=== PATIENT | female | born 1995 | race Caucasian/White ===

== ENCOUNTER 2017-03-15 12:50 | Inpatient (IN) | payer BC ==
[2017-03-10 16:34] VITALS: BMI 21.4
--- NOTE | 2017-03-11 12:01 | HP ---
Admitting History and Physical - Primary Care Physician PCP: Mateo Pinedo - Admission Chief Complaint: High risk for breast cancer History of Present Illness: Patient is a 21 yo female who presents as a high risk for breast cancer patient sec to family hx and BRCA 2 positive status. Patient had a negative MRI on . Patient is now presenting for bilateral mastectomy with reconstruction. History Source: Patient Limitations to Obtaining History: No Limitations - Past Medical History ...LMP Comment: DEPO SHOT-NONE FOR 2YRS Psych: Yes: Anxiety ENT: Yes: Other - Smoking History Smoking history: Never smoked Have you smoked in the past 12 months: No - Alcohol/Substance Use Hx Alcohol Use: No Home Medications - Allergies Allergies/Adverse Reactions: Allergies Allergy/AdvReac Type Severity Reaction Status Date / Time adhesive tape Allergy "RASH" Verified 03/10/17 16:50 No Known Drug Allergies Allergy Verified 03/10/17 16:50 - Home Medications Home Medications: Ambulatory Orders Medroxyprogesterone Acetate [Depo-Provera] 150 mg IM ASDIR 02/16/17 Acetaminophen [Tylenol] 650 mg PO PRN PRN 03/10/17 Family Disease History - Family Disease History Family Disease History: Other: Father (BRCA positive) Other Family History: paternal aunt-breast cancer and BRCA positive. paternal uncle-breast cancer and BRCA positive. brother-BRCA pos. Maternal aunt-breast cancer BRCA negative. maternal GF-colorectal cancer. maternal GGM-colorectal cancer. maternal uncle-bladder cancer Review of Systems - Review of Systems Psychiatric: reports: Anxiety Physical Examination Breast(s): Yes: Other (Symmetrical A cup breasts without skin changes or nipple discharge noted. No suspicious masses or adenopathy noted bilaterally.) Problem List - Problems (1) Family history of breast cancer Code(s): Z80.3 - FAMILY HISTORY OF MALIGNANT NEOPLASM OF BREAST (2) BRCA gene mutation positive Code(s): Z15.01 - GENETIC SUSCEPTIBILITY TO MALIGNANT NEOPLASM OF BREAST Z15.02 - GENETIC SUSCEPTIBILITY TO MALIGNANT NEOPLASM OF OVARY Assessment/Plan Plan: Bilateral mastectomy with reconstruction.
[2017-03-15] MEDS ORDERED: ceFAZolin SODIUM 1 GM VIAL ONE ×3 (12:55→20:42)
[2017-03-15] MEDS ORDERED: GENTAMICIN SO4 80 MG/2 ML VIAL ONE (12:55)
[2017-03-15] MEDS ORDERED: ROPIVACAINE HCL 0.5% 30ML VIAL ONE (12:58)
[2017-03-15] MEDS ORDERED: MIDAZOLAM HCL 2 MG/2 ML SINGLE DOSE VIAL ONE ×2 (12:59)
[2017-03-15] MEDS ORDERED: SCOPOLAMINE HYDROBROMIDE 1 PATCH PATCH.TD72 ONE (14:34)
[2017-03-15] MEDS ORDERED: DESFLURANE GAS 240 ML BOTTLE IH ONE (14:34)
[2017-03-15] MEDS ORDERED: ZOLPIDEM TARTRATE 5 MG TABLET PO PRN (15:04)
[2017-03-15] MEDS ORDERED: ACETAMINOPHEN 325 MG TABLET (FP) PO PRN (15:04)
[2017-03-15] MEDS ORDERED: ROCURONIUM BROMIDE 50 MG/5 ML VIAL ONE ×2 (15:14→16:50)
[2017-03-15] MEDS ORDERED: PROPOFOL 20 ML ONE ×2 (15:14)
[2017-03-15] MEDS ORDERED: MEDROXYPROGESTERONE ACETATE IM SCH (15:15)
[2017-03-15] MEDS ORDERED: SODIUM CHLORIDE 0.9% P/F 10 ML VIAL IJ ONE ×2 (15:30→15:43)
[2017-03-15] MEDS: ceFAZolin SODIUM 1 GM VIAL IVPB ONE ×2 (15:31→21:12)
[2017-03-15] MEDS ORDERED: ACETAMINOPHEN INJECTION 100 ML IVPB ONE (15:31)
[2017-03-15] MEDS ORDERED: DEXAMETHASONE SOD PHOSPHATE 4 MG/1 ML VIAL ONE (15:33)
[2017-03-15] MEDS ORDERED: HYDROmorphone HCL/PF 1 MG/ML VIAL (FOR PYXIS CHARGING ONLY) ONE (15:43)
[2017-03-15] MEDS ORDERED: NEOSTIGMINE METHYLSULFATE 0.5 MG/ML - 10 ML MDV ONE (17:29)
[2017-03-15] MEDS ORDERED: GLYCOPYRROLATE 0.2 MG/1 ML VIAL ONE (17:29)
[2017-03-15] MEDS ORDERED: ONDANSETRON 4 MG/2 ML VIAL ONE (17:29)
[2017-03-15] MEDS ORDERED: ONDANSETRON 4 MG/2 ML VIAL IVPUSH PRN ×2 (19:09)
[2017-03-15] MEDS ORDERED: PROMETHAZINE HCL 25 MG/1 ML VIAL IVPUSH PRN (19:09)
[2017-03-15] MEDS ORDERED: PROMETHAZINE HCL 25 MG/1 ML VIAL IVPB PRN (19:09)
[2017-03-15] MEDS ORDERED: LACTATED RINGERS SOLUTION 1,000 ML IV SCH (19:15)
[2017-03-15] MEDS ORDERED: HYDROmorphone *PCA* 10MG/50ML DISP.SYRIN PCA ONE (19:16)
[2017-03-15] MEDS: HYDROmorphone *PCA* 10MG/50ML DISP.SYRIN PCA SCH ×2 (19:30→23:30)
[2017-03-15] MEDS: DEXTROSE 5%-0.45% SALINE 1,000 ML IV SCH (19:45)
[2017-03-15] MEDS ORDERED: CEFAZOLIN 1 GM/D5W 50 ML IVPB SCH (21:00)
[2017-03-15] MEDS: ONDANSETRON 4 MG/2 ML VIAL IVPB PRN (22:15)
[2017-03-16] MEDS: CEFAZOLIN 1 GM in DEXTROSE 5%-WATER - 50 ML IVPB SCH ×4 (03:40→21:36)
[2017-03-16] MEDS: DEXTROSE 5%-0.45% SALINE 1,000 ML IV SCH (06:33)
--- NOTE | 2017-03-16 06:59 | OP ---
DATE OF OPERATION: 03/15/2017 PREOPERATIVE DIAGNOSIS: High risk for breast cancer, genetic susceptibility. POSTOPERATIVE DIAGNOSIS: High risk for breast cancer, genetic susceptibility. PROCEDURE: Bilateral total nipple-sparing mastectomy through an inframammary approach with bilateral direct implant reconstruction with AlloDerm. ANESTHESIA: General endotracheal anesthesia. PRIMARY SURGEON: Chato Carroll MD ANALYST PROGRAMMER: JUAN MIGUEL Da Silva PRIMARY SURGEON FOR THE BILATERAL DIRECT IMPLANT RECONSTRUCTIONS AND ALLODERM: MD DR. GARY Hector'S ANALYST PROGRAMMER: JUAN MIGUEL Reardon COMPLICATIONS: There were no complications. Briefly, the patient is a 21-year-old nulliparous premenopausal white female of [place] and Christianity descent. She has a paternal aunt and uncle who had breast cancer and tested BRCA2 positive. The patient herself tested BRCA2 positive with a 7042 deletion and mutation and had a recent MRI which was negative. She was seen in consultation regarding risk-reduction prophylactic mastectomy. She understood the options of close surveillance versus mastectomy for risk reduction versus tamoxifen for risk reduction. She chose to go forward with surgery. She was counseled that due to her age she could actually wait but decided to have the surgery now. The patient was seen by Plastic Surgery and understood the direct implant reconstruction technique. All risks, complications of the procedure were explained to the patient, including risks of skin flap necrosis, nipple loss, hematoma, and infection, and she had a full understanding. Patient understood that we would do retroareolar biopsies at the time of surgery. If these show cancer, we would remove the nipples. She understood the lack of any evidence sentinel lymph node biopsy. The patient was brought in for the procedure on March 15, 2017. This was done at [facility]. In the holding area, site verification was made and informed consent was obtained. She was marked preoperatively by the plastic surgeon. She did sign consent for the nipple-sparing registry as well. The patient was brought into the operating room and laid on the OR table in the supine position. Venodynes were placed on the lower extremities. She received a gram of Ancef prior to incision. She underwent general endotracheal anesthesia. Both breasts were sterilely prepped and draped in the usual fashion. Inframammary incisions were marked out bilaterally and symmetrically about 7.5 cm from the nipple in the inframammary fold. The 8-cm incisions were made and the left mastectomy was first performed. Incision was made 8 cm in length and the skin edges were everted and the breast was retracted inferiorly using Woods clamps. The skin flap was raised using the PEAK radiofrequency device superiorly to the level of the clavicle, medially to the level of the sternum, laterally to the level of the latissimus, and inferiorly below the level of the inframammary fold. The breast was taken down off the pectoralis major muscle using electrocautery from inferomedial to superolateral, completely removed intact. It was oriented with a long lateral, short superior suture and weighed to allow for appropriate cosmetic result. It was then placed in formalin to be sent to Pathology. Retroareolar biopsy was taken underneath the left nipple-areolar complex, sent for frozen section, came back negative, so the left nipple was spared. Skin flaps were trimmed for good cosmetic result and hemostasis was achieved. The wound was copiously irrigated with warm sterile saline. At this point, the right mastectomy was approached. Again, an inframammary Incision was made symmetrical to the left side about 8 cm in length. The skin edges were everted and the breast was retracted inferiorly using Krishna clamps. The skin flap was raised using the PEAK radiofrequency device superiorly to the level of the clavicle, medially to the level of the sternum, laterally to the level of the latissimus, and inferiorly below the level of the inframammary fold. The breast was taken down off the pectoralis major muscle using electrocautery from inferomedial to superolateral and completely removed intact. It was oriented with a long lateral, short superior suture and weighed to allow for appropriate cosmetic result and then placed in formalin and sent to Pathology as specimen. A retroareolar biopsy was taken underneath the right nipple-areolar complex and sent for frozen section, came back negative, so the right nipple was spared. Skin flaps were trimmed and hemostasis was achieved. The wound was copiously irrigated with warm sterile saline. At this point, Dr. Rowley became the primary surgeon to perform bilateral direct implant reconstructions using AlloDerm in the subpectoral location. This will be dictated separately by Dr. Rowley. We did use a skin SPY perfusion device during the case which showed excellent perfusion in both skin flaps and nipples after the mastectomy. Dr. Rowley will dictate the implant reconstructions and the patient will have 2 drains placed around each implant and wounds will be closed using 3-0 deep dermal PDS suture and a running 4-0 subcuticular PDS suture. Mastisol, Steri-Strips will be applied over the wounds and she will be placed in a surgical bra postoperatively. The patient will be recovered postoperatively and be admitted for postoperative pain control and wound management. Estimated blood loss was about 100 mL after the mastectomies and she was hemodynamically stable. All sponge and needle counts were correct at this point in the case. CHATO CARROLL M.D. [id number]
[2017-03-16 07:20] LABS: MCH 28.2 pg (25.7-33.7); MCHC 33.1 g/dl (32.0-36.0); MEAN CELL VOLUME 85.2 fl (80-96); MEAN PLT VOLUME 7.5 fl (7.5-11.1); PLATELET COUNT 286 K/MM3 (134-434); RDW 12.5 % (11.6-15.6); WHITE BLOOD COUNT 11.9 K/mm3 (4.0-10.0)
--- NOTE | 2017-03-16 07:52 | PN ---
Progress Note, Physician Chief Complaint: Genetic susceptibility for breast cancer BRCA2+ History of Present Illness: The patient has a strong family history of breast cancer and was found to have a BRCA2 mutation. She decided on prophylactic risk reduction mastectomies and was admitted postoperatively for postop wound management and pain control. - Current Medication List Current Medications: Active Medications Acetaminophen (Tylenol -) 650 mg PO Q4H PRN PRN Reason: FEVER Diphenhydramine HCl (Benadryl Injection -) 12.5 mg IVPUSH ONCE PRN PRN Reason: FOR ITCHING Hydromorphone HCl (Dilaudid Cheese Factory Worker -) 0 mg PASTE MIXER PASTE MIXER JACIEL PRN Reason: Protocol Stop: 03/22/17 19:10 Last Admin: 03/15/17 23:30 Dose: Not Given Dextrose/Sodium Chloride (D5-1/2ns -) 1,000 mls @ 100 mls/hr IV ASDIR JACIEL Last Admin: 03/16/17 06:33 Dose: 100 mls/hr Cefazolin Sodium 1 gm/ (Dextrose) 50 mls @ 100 mls/hr IVPB Q6H-IV JACIEL Stop: 03/22/17 20:59 Last Admin: 03/16/17 03:40 Dose: 100 mls/hr Non-Formulary Medication (Medroxyprogesterone Acetate [Depo-Provera]) 150 mg IM ASDIR JACIEL Ondansetron HCl (Zofran Injection) 4 mg IVPB Q6H PRN PRN Reason: NAUSEA AND/OR VOMITING Last Admin: 03/15/17 22:15 Dose: 4 mg Promethazine HCl (Phenergan Injection -) 12.5 mg IVPB Q6H PRN PRN Reason: NAUSEA AND/OR VOMITING Zolpidem Tartrate (Ambien -) 5 mg PO HS PRN PRN Reason: Insomnia - Objective Vital Signs: Vital Signs Temperature 98.8 F 03/16/17 06:48 Pulse Rate 104 H 03/16/17 06:48 Respiratory Rate 20 03/16/17 06:48 Blood Pressure 102/58 03/16/17 06:48 O2 Sat by Pulse Oximetry (%) 98 03/15/17 22:10 Constitutional: Yes: Well Nourished, No Distress, Calm Eyes: Yes: WNL HENT: Yes: WNL Neck: Yes: WNL Cardiovascular: Yes: Regular Rate and Rhythm Respiratory: Yes: Regular, CTA Bilaterally Gastrointestinal: Yes: Normal Bowel Sounds, Soft ...Rectal Exam: Yes: Deferred Genitourinary: Yes: WNL Breast(s): Yes: Other (Wounds clean,dry, and intact. Skin flaps warm and viable. Drains fuctioning well.) Musculoskeletal: Yes: WNL Extremities: Yes: WNL Integumentary: Yes: WNL Wound/Incision: Yes: Clean/Dry, Well Approximated Neurological: Yes: Alert, Oriented ...Motor Strength: WNL Psychiatric: Yes: WNL Problem List - Problems (1) BRCA gene mutation positive Assessment/Plan: The patient is doing well POD#1 s/p bilateral prophylactic nipple sparing mastectomies and direct to implant reconstructions. Wounds clean, dry, and intact. Skin flaps viable. Drains functioning well. Patient has good pain control. Will stop PASTE MIXER this afternoon and start percocet. Can stop IV fluids this afternoon. Continue antibiotics. Likely discharge tomorrow AM if doing well. Code(s): Z15.01 - GENETIC SUSCEPTIBILITY TO MALIGNANT NEOPLASM OF BREAST Z15.02 - GENETIC SUSCEPTIBILITY TO MALIGNANT NEOPLASM OF OVARY
[2017-03-16] MEDS ORDERED: DEXTROSE 5%-0.45% SALINE 1,000 ML IV SCH (07:58)
--- NOTE | 2017-03-16 08:45 | PN ---
Progress Note, Physician Chief Complaint: S/p bilateral mastectomies with direct implant placement. History of Present Illness: Pt is POD #1 s/p bilateral mastectomies with direct implant placement and alloderm. Pain well controlled with 911 DISPATCHER and nerve block. Denies any fever, nausea, vomiting, sob, or difficulty breathing. - Current Medication List Current Medications: Active Medications Acetaminophen (Tylenol -) 650 mg PO Q4H PRN PRN Reason: FEVER Diphenhydramine HCl (Benadryl Injection -) 12.5 mg IVPUSH ONCE PRN PRN Reason: FOR ITCHING Hydromorphone HCl (Dilaudid Contract Engineer -) 0 mg 911 DISPATCHER 911 DISPATCHER JACIEL PRN Reason: Protocol Stop: 03/16/17 12:00 Last Admin: 03/15/17 23:30 Dose: Not Given Cefazolin Sodium 1 gm/ (Dextrose) 50 mls @ 100 mls/hr IVPB Q6H-IV JACIEL Stop: 03/22/17 20:59 Last Admin: 03/16/17 03:40 Dose: 100 mls/hr Dextrose/Sodium Chloride (D5-1/2ns -) 1,000 mls @ 100 mls/hr IV ASDIR JACIEL Stop: 03/16/17 12:00 Non-Formulary Medication (Medroxyprogesterone Acetate [Depo-Provera]) 150 mg IM ASDIR JACIEL Ondansetron HCl (Zofran Injection) 4 mg IVPB Q6H PRN PRN Reason: NAUSEA AND/OR VOMITING Last Admin: 03/15/17 22:15 Dose: 4 mg Oxycodone/Acetaminophen (Percocet 5/325 -) 2 combo PO Q4H PRN PRN Reason: PAIN LEVEL 6-10 Promethazine HCl (Phenergan Injection -) 12.5 mg IVPB Q6H PRN PRN Reason: NAUSEA AND/OR VOMITING Zolpidem Tartrate (Ambien -) 5 mg PO HS PRN PRN Reason: Insomnia - Objective Vital Signs: Vital Signs Temperature 98.8 F 03/16/17 06:48 Pulse Rate 104 H 03/16/17 06:48 Respiratory Rate 20 03/16/17 06:48 Blood Pressure 102/58 03/16/17 06:48 O2 Sat by Pulse Oximetry (%) 98 03/15/17 22:10 Constitutional: Yes: Well Nourished, No Distress, Calm Eyes: Yes: WNL HENT: Yes: WNL Neck: Yes: WNL Cardiovascular: Yes: WNL Respiratory: Yes: WNL Gastrointestinal: Yes: WNL, Soft ...Rectal Exam: Yes: Deferred Genitourinary: Yes: WNL Musculoskeletal: Yes: Other (Bilateral breast with appropriate swelling and ecchymosis. Dressings C/D/I. No s/s of infections. Nipples and areola's viable with good perfusion. DORCAS drains holding suction.) Extremities: Yes: WNL Edema: No Integumentary: Yes: WNL Wound/Incision: Yes: Clean/Dry, Steri Strips Neurological: Yes: WNL ...Motor Strength: WNL Psychiatric: Yes: WNL Additional Findings/Remarks: Cont with francine hugger. oob to chair and ambulation cont with pain management cont with diet possible d/c tomorrow Labs: CBC, BMP 03/16/17 06:30
[2017-03-16] MEDS ORDERED: ceFAZolin SODIUM 1 GM VIAL ONE ×3 (08:57→20:40)
[2017-03-16] MEDS ORDERED: DEXTROSE 5%-WATER - 50 ML IVPB ONE ×3 (08:57→20:40)
[2017-03-16] MEDS ORDERED: ACETAMINOPHEN 325 MG TABLET (FP) PO PRN (09:03)
[2017-03-16] MEDS: ONDANSETRON 4 MG/2 ML VIAL IVPB PRN (10:21)
--- NOTE | 2017-03-16 13:12 | PN ---
Progress Note (short form) - Note Progress Note: Anesthesia postop note 21 y/o F s/p GA for bilateral mastectomy, reconstruction, sewing supervisor for postop pain management POD#1, vss, aaox3, pain well controlled, not using sewing supervisor much No anesthesia complications, will d/c sewing supervisor
--- NOTE | 2017-03-16 14:03 | DS ---
Physical Examination Vital Signs: Vital Signs Temperature 100.2 F H 03/16/17 09:00 Pulse Rate 108 H 03/16/17 11:00 Respiratory Rate 20 03/16/17 11:00 Blood Pressure 112/68 03/16/17 11:00 O2 Sat by Pulse Oximetry (%) 98 03/16/17 09:00 Findings/Remarks: BRCA positive patient S/p bilateral nipple sparing total mastectomies with implant alloderm reconstruction. Patient had no complications and was treated with IV antibiotics and COMPUTER EQUIPMENT INSTALLER and oxycodone for pain. She is ready for discharge. Constitutional: Yes: Well Nourished, No Distress Breast(s): Yes: Other (flps viable incision intact steristrips in place joaquín drain functioning) Labs: CBC, BMP 03/16/17 06:30 Discharge Summary Reason For Visit: GENETIC SUSCEPTIBILITY Current Active Problems Family history of breast cancer (Acute) Condition: Good - Instructions Diet, Activity, Other Instructions: Post Operative Instructions - [facility] We hope your recovery will be uneventful. For those of you who have been given general anesthesia, there is a possibility you might have some lightheadedness and possibly nausea. It is important that each patient, especially those who have had general anesthesia, follow these instructions, please: 1. Do NOT operate a motor vehicle for 24 hours. 2. Do NOT drink any alcoholic beverages for 24 hours. 3. Do NOT take any sedatives, narcotics, or tranquilizers for 24 hours unless specifically ordered by your surgeon. 4. Do NOT undertake any strenuous exercise or outside activity for 24 hours unless specifically permitted by your surgeon. 5. Eat light foods that are easy to digest. If you have any problems with nausea and vomiting, lie down and rest. If it continues, call your surgeon. 6. Call your surgeon AT ONCE if you have problems with: a. Bleeding b. Urinating c. Excessive pain or drainage d. Numbness If any problems occur, call your physician first. If you cannot reach him/her, call the Ambulatory Surgery Unit at [phone], or the Emergency Room at [phone]. Follow up with Drs. Pinedo / Darinel in 7 days. Medication: Vicodin E-S OR Percocet 1-2 tablets every 4-6 hrs as needed for 5-7 days. Wound Care: Keep wound dry and clean for 48 hours. You may remove the dressing after 48 hours and may shower. Keep steri-strips in place until follow-up appointment No heavy lifting or strenuous activities. BREAST SURGERY INSTRUCTIONS Gil Pinedo M.D., RAMYA Pinedo M.D., RAMYA Tena M.D., FACS 1. Please call the office at to make a follow up appointment with your surgeon. This number can be also used for any urgent issues you may have. 2. Call us immediately if any of the following occur: *Bleeding from the incision or drain site (a small amount is normal) *Fever or chills *Redness and worsening tenderness around the surgical site *Drainage of pus or fluid from the incision or drain site 3. You may change the surgical dressing two (2) days after your surgery, and may shower then. If you have drains, you may shower after they have been removed, until then take a sponge bath. 4. It is normal for there to be some bruising and tenderness around the surgical site, and the breast may also be firm in this area. 5. Please wear a comfortable bra (sports or surgical bra) all day and all night until your first follow-up visit with your surgeon. 6. The pain medicine you have been prescribed may make you constipated; make sure you drink plenty of water. You may use an over the counter laxative if needed. 7. You may resume your normal diet after surgery, although you may want to avoid rich foods for the first twenty-four (24) hours after surgery. Alcoholic drinks should be avoided while taking the prescribed pain medicine. 8. You may resume normal activities as long as there is no discomfort, but do not do upper body exercises until after your follow-up appointment. Do not lift anything heavier than a large phone book. You may resume driving once you have stopped taking the prescribed pain medicine and feel comfortable doing arm movements. WEAR BRA NO SHOWER< RECORD JOAQUÍN OUTPUT TWICE DAILY Referrals: Mateo Pinedo MD [Staff Physician] - Hamzah Rowley MD [Staff Physician] - Disposition: HOME - Home Medications Comprehensive Discharge Medication List: Ambulatory Orders Medroxyprogesterone Acetate [Depo-Provera] 150 mg IM ASDIR 02/16/17 Acetaminophen [Tylenol] 650 mg PO PRN PRN 03/10/17 Cefadroxil 500 mg PO BID #20 capsule 03/16/17 Oxycodone HCl/Acetaminophen [Percocet 5-325 mg Tablet] 1 - 2 tab PO Q6H PRN #30 tab MDD 6 03/16/17
[2017-03-16] MEDS: oxyCODONE HCL 5 MG TABLET PO PRN ×2 (19:25→23:09)
[2017-03-17] MEDS ORDERED: ceFAZolin SODIUM 1 GM VIAL ONE ×2 (03:02→08:34)
[2017-03-17] MEDS ORDERED: DEXTROSE 5%-WATER - 50 ML IVPB ONE ×2 (03:02→08:34)
[2017-03-17] MEDS: oxyCODONE HCL 5 MG TABLET PO PRN ×3 (03:11→11:19)
[2017-03-17] MEDS: CEFAZOLIN 1 GM in DEXTROSE 5%-WATER - 50 ML IVPB SCH ×2 (03:11→08:40)
--- NOTE | 2017-03-17 08:25 | PN ---
Progress Note, Physician Chief Complaint: BRCA positve S/P bilateral nipple sparing total mastectomies implant alloderm reconstruction History of Present Illness: patient's pain is managed with oxycodone, eating,OOb ready for discharge today - Current Medication List Current Medications: Active Medications Acetaminophen (Tylenol -) 650 mg PO Q4H PRN PRN Reason: FEVER Last Admin: 03/17/17 07:11 Dose: 650 mg Acetaminophen (Tylenol -) 650 mg PO Q4H PRN PRN Reason: PAIN Stop: 03/19/17 09:02 Diphenhydramine HCl (Benadryl Injection -) 12.5 mg IVPUSH ONCE PRN PRN Reason: FOR ITCHING Cefazolin Sodium 1 gm/ (Dextrose) 50 mls @ 100 mls/hr IVPB Q6H-IV JACIEL Stop: 03/22/17 20:59 Last Admin: 03/17/17 03:11 Dose: 100 mls/hr Non-Formulary Medication (Medroxyprogesterone Acetate [Depo-Provera]) 150 mg IM ASDIR JACIEL Ondansetron HCl (Zofran Injection) 4 mg IVPB Q6H PRN PRN Reason: NAUSEA AND/OR VOMITING Last Admin: 03/16/17 10:21 Dose: 4 mg Oxycodone HCl (Roxicodone -) 10 mg PO Q4H PRN PRN Reason: PAIN Last Admin: 03/17/17 07:09 Dose: 10 mg Promethazine HCl (Phenergan Injection -) 12.5 mg IVPB Q6H PRN PRN Reason: NAUSEA AND/OR VOMITING Zolpidem Tartrate (Ambien -) 5 mg PO HS PRN PRN Reason: Insomnia - Objective Vital Signs: Vital Signs Temperature 99 F 03/17/17 06:36 Pulse Rate 109 H 03/17/17 06:36 Respiratory Rate 20 03/17/17 06:36 Blood Pressure 124/74 03/17/17 06:36 O2 Sat by Pulse Oximetry (%) 98 03/16/17 21:00 Constitutional: Yes: Well Nourished, No Distress Breast(s): Yes: Other (flaps viable incision intact no s/s of infection, minimal echymosis bilaterally, joaquín drain functioning, dressing changed today) Labs: CBC, BMP 08/16/17 06:30 Problem List - Problems (1) BRCA gene mutation positive Code(s): Z15.01 - GENETIC SUSCEPTIBILITY TO MALIGNANT NEOPLASM OF BREAST Z15.02 - GENETIC SUSCEPTIBILITY TO MALIGNANT NEOPLASM OF OVARY Assessment/Plan Discharge patient home today no shower follow up with Dr Pinedo and dr Rowley next week percocet prn and cefadroxil BID JOAQUÍN drain training
[2017-03-17] MEDS: ONDANSETRON 4 MG/2 ML VIAL IVPB PRN (11:19)
[2017-03-17 11:57] VITALS: BP 100/60; PULSE 98; TEMP 98.9
--- NOTE | 2017-03-17 14:19 | PATH ---
Surgical Pathology Report Patient Name: VICKI VANEGAS Med. Rec. #: [id number] /Age/Gender: 1995 (Age: 21) / F Account: [id number] Location: [facility] MED/SURG Taken: 03/15/2017 Received: 03/15/2017 Reported: 03/17/2017 Physicians: Michael Torres Specimen(s) Received A: RETROAREOLAR BIOPSY RIGHT BREAST B: RETROAREOLAR BIOPSY LEFT BREAST C: RIGHT BREAST, MASTECTOMY D: LEFT BREAST, MASTECTOMY Clinical History Genetic susceptibility Intraoperative Consult Diagnosis A. Retroareolar biopsy right breast, frozen section: No carcinoma identified. B. Retroareolar biopsy left breast, frozen section: No carcinoma identified. Dr. Peters, 03/15/17 Final Diagnosis A. BREAST, RIGHT, RETROAREOLAR BIOPSY: BENIGN BREAST TISSUE. B. BREAST, LEFT, RETROAREOLAR BIOPSY: BENIGN BREAST TISSUE. C. BREAST, RIGHT, NIPPLE SPARING MASTECTOMY: BENIGN BREAST TISSUE WITH FIBROCYSTIC CHANGE WITH FOCAL DUCT DILATATION, STROMAL FIBROSIS AND FIBROADENOMATOID CHANGE. D. BREAST, LEFT, NIPPLE SPARING MASTECTOMY: BENIGN BREAST TISSUE WITH FIBROCYSTIC CHANGE WITH FOCAL DUCT DILATATION, STROMAL FIBROSIS AND FIBROADENOMATOID CHANGE. ONE BENIGN INTRAMAMMARY LYMPH NODE. Electronically Signed Elie Peters M.D. Gross Description A. Received fresh labeled "retroareolar biopsy right breast" is a 1.1 x 0.6 x 0.3 cm sanchez, irregular portion of fibroadipose tissue. The specimen is submitted in toto for frozen section. The frozen section residue is entirely submitted in one cassette. B. Received fresh labeled "retroareolar biopsy of left breast" is a 1.2 x 1.1 x 0.3 cm sanchez, irregular portion of fibroadipose tissue. The specimen is submitted in toto for frozen section. The frozen section residue is entirely submitted in one cassette. C. Received in formalin, labeled "right breast mastectomy" is a 208 gram, 14.5 x 12.5 x 3.5 cm. right mastectomy specimen with a short suture marking the superior aspect and a long suture marking the lateral aspect of the specimen, per the surgeon. There is no skin or nipple present. The deep margin is inked black and the anterior soft tissue margin is inked blue. The specimen is serially sectioned from lateral to medial. Sectioning reveals abundant dense white fibrous tissue. Corporate Strategy Analyst sections are submitted in 12 cassettes as follows: 1-3-upper outer quadrant; 4-6-lower outer quadrant; 7-8-upper inner quadrant; 9-10-lower inner quadrant; 11-anterior soft tissue margin; 12-deep margin. D. Received in formalin, labeled "left breast mastectomy" is a 184 gram, 15.0 x 13.0 x 3.2 cm. left mastectomy specimen with a short suture marking the superior aspect and a long suture marking the lateral aspect of the specimen, per the surgeon. There is no skin or nipple present. The deep margin is inked black and the anterior soft tissue margin is inked blue. The specimen is serially sectioned from medial to lateral. Sectioning reveals abundant dense white fibrous tissue. Corporate Strategy Analyst sections are submitted in 12 cassettes as follows: 1-2-upper outer quadrant; 3-4-lower outer quadrant; 5-7-upper inner quadrant; 8-10-lower inner quadrant; 11-anterior soft tissue margin; 12-deep margin. Time to fixation: not given. Total formalin fixation time: ~24h 03/16/201703/16/2017
--- NOTE | 2017-03-18 12:04 | OP ---
DATE OF OPERATION: 03/15/2017 SURGEON: Chato Rowley MD OFFICE EQUIPMENT MECHANIC SURGEON: Jaymie Rowan PA-C PREOPERATIVE DIAGNOSES: 1. Bilateral acquired chest wall deformity status post bilateral mastectomy (611.89). 2. Personal history of genetic carcinoma. POSTOPERATIVE DIAGNOSES: 1. Bilateral acquired chest wall deformity status post bilateral mastectomy (611.89). 2. Personal history of genetic carcinoma. PROCEDURE: 1. Right immediate breast reconstruction utilizing immediate insertion of silicone breast implant and AlloDerm reconstruction. 2. Left immediate breast reconstruction utilizing immediate insertion of silicone breast implant and AlloDerm reconstruction. 3. Intravenous injection of indocyanine green dye and intraoperative diagnostic evaluation of non-coronary intraoperative fluorescein vascular angiography x 2. ANESTHESIA: GENERAL OPERATIVE PROCEDURE IN DETAIL: The patient was taken to the operating room. After induction of general anesthesia in the supine position, both arms were extended and padded. Venodyne boots were placed. The entire chest wall was painted with ChloraPrep solution over its entire extent, and sterile drapes were placed in the usual fashion. The markings, which had been made in the standing position preoperatively, were reoutlined with the patient's knowledge. Time-out procedure was performed. Attention was turned by Dr. Pinedo to the mastectomies. Bilateral inframammary incisions were made and Dr. Pinedo performed mastectomies. This will be dictated under separate cover. Upon completion of the mastectomies, the wounds were copiously irrigated and attention was turned to the right breast. A subpectoral dissection was begun on the right breast, superiorly from the second rib, medially to the sternal fibers, and down to the inframammary fold, elevating the pectoralis major muscle from its insertion. The patient had AlloDerm contour perforated median sheets placed bilaterally. At this point, an 8.0 x 16.0 sheet of AlloDerm was brought into the field and sutured superiorly along the pectoralis major muscle after rehydration. This was carried along the lateral mammary fold and down the side of the breast reconstruction. At this point, a Natrelle Inspira cohesive breast implants of 520 mL style CSF implant was chosen. The left breast tissue removed as per Dr. Pinedo. This implant was placed and then sutured with 3-0 Vicryl suture continued along the inframammary fold, completely covering the implant itself. The exact same procedure was carried out symmetrically on the opposite breast, also placing a Natrelle Inspira cohesive breast implants of 520 mL style CSF. implant in the same subpectoral pocket. Good symmetry was seen in the sitting position. After the implants were in place, the patient was injected with 10 mL of Isocyanide green dye. She had Spy intraoperative angiogram x2 with good blood flow bilaterally. The skin flowed to the right and left breasts and the nipple areolar complex, and the entire skin flaps were evaluated and seen to be viable with good blood flow. Two Kb-Hawkins drains were brought out through separate stab wounds laterally. The Smart Infuser pump catheter was inserted medially and into the subpectoral position. Both wounds were closed symmetrically using 3-0 PDS suture on the deep tissue, 3-0 in a deep dermal fashion, and 4-0 in a subcuticular fashion. Both wounds were dressed sterilely with Mastisol and Steri-Strips with a surgical bra and a compression strap. The patient tolerated the procedure well. She was awakened, extubated and transferred to the recovery room in satisfactory condition. The housing assistant property manager was present during the entire portion of the operation and closure. CHATO ROWLEY M.D. [id number]
== END 2017-03-17 11:58 | disposition home or self-care (01) | DRG 585 ==
LOC: JSAMEDAYSX 12:50 → EDSTATUS 14:00 → J8W 21:44
PROVIDERS: ADMIT Surgery Surgical Oncology; ATTEND Surgery Surgical Oncology
PROC: 0HUV0JZ Supplement Bilateral Breast with Synthetic Substitute, Open Approach (ICD-10-PCS; 2017-03-15)
PROC: 0HTV0ZZ Resection of Bilateral Breast, Open Approach (ICD-10-PCS; principal; 2017-03-15 14:00)
PROC: 0HRV0JZ Replacement of Bilateral Breast with Synthetic Substitute, Open Approach (ICD-10-PCS; 2017-03-15 14:00)
DX: Z40.01 Encounter for prophylactic removal of breast (principal); Z15.01 Genetic susceptibility to malignant neoplasm of breast; M95.4 Acquired deformity of chest and rib
CPT/HCPCS: 36415; 84703; 85027; 88305-TC; 88307-TC; 88331-TC; 94760

== ENCOUNTER 2017-10-13 06:12 | Day surgery (SDC) | payer BC ==
[2017-10-06 11:55] VITALS: BMI 21.9
[2017-10-13] MEDS ORDERED: SUCCINYLCHOLINE CHLORIDE 200 MG/10 ML VIAL ONE (07:02)
[2017-10-13] MEDS ORDERED: ATROPINE SO4 0.4 MG/1 ML VIAL ONE (07:02)
[2017-10-13] MEDS ORDERED: ROCURONIUM BROMIDE 50 MG/5 ML VIAL ONE (07:02)
[2017-10-13] MEDS ORDERED: PROPOFOL 20 ML ONE ×2 (07:02)
[2017-10-13] MEDS ORDERED: LIDOCAINE HCL/PF 2% SDV 5ML VIAL ONE (07:03)
[2017-10-13] MEDS ORDERED: MIDAZOLAM HCL 2 MG/2 ML SINGLE DOSE VIAL ONE (07:09)
[2017-10-13] MEDS ORDERED: LIDOCAINE HCL 1%, 10 MG/ML (20ML VIAL) ONE (07:18)
[2017-10-13] MEDS ORDERED: GENTAMICIN SO4 80 MG/2 ML VIAL ONE (07:18)
[2017-10-13] MEDS ORDERED: BUPIVACAINE HCL/PF 0.5% (5MG/ML) 10 ML VIAL ONE (07:18)
[2017-10-13] MEDS ORDERED: ceFAZolin SODIUM 1 GM VIAL ONE (07:18)
[2017-10-13] MEDS ORDERED: EPINEPHrine/PF 1 MG/1 ML (1:1,000) AMPULE ONE (07:19)
[2017-10-13] MEDS ORDERED: LIDOCAINE 1%/EPI 1:100000 (20 ML MULTI DOSE VIAL) ONE (07:19)
[2017-10-13] MEDS ORDERED: SCOPOLAMINE HYDROBROMIDE 1 PATCH PATCH.TD72 ONE (07:24)
[2017-10-13] MEDS ORDERED: ONDANSETRON 4 MG/2 ML VIAL ONE (07:25)
[2017-10-13] MEDS ORDERED: ePHEDrine SULFATE 50 MG/1 ML AMPULE ONE (08:12)
[2017-10-13] MEDS ORDERED: DEXAMETHASONE SOD PHOSPHATE 4 MG/1 ML VIAL ONE (08:31)
[2017-10-13] MEDS ORDERED: oxyCODONE HCL 5 MG TABLET PO PRN (08:38)
[2017-10-13] MEDS ORDERED: ONDANSETRON 4 MG/2 ML VIAL IVPUSH PRN (08:38)
[2017-10-13] MEDS ORDERED: LACTATED RINGERS SOLUTION 1,000 ML IV SCH (08:45)
[2017-10-13] MEDS ORDERED: PHENYLEPHRINE HCL 10 MG/1 ML SINGLE DOSE VIAL ONE (08:53)
[2017-10-13] MEDS ORDERED: LIDOCAINE 1%/EPI 1:100000 (50 ML MULTI DOSE VIAL) INF ONE ×2 (08:54)
[2017-10-13] MEDS ORDERED: diazePAM 5 MG TABLET PO ONE (12:03)
--- NOTE | 2017-10-13 12:10 | PN ---
Progress Note (short form) - Note Progress Note: 22F s/p bilateral implant exchange under general anesthesia with an LMA this morning complaining of throat pain. I was present for placement of LMA, it was passed without difficulty after a single atraumatic attempt. I spoke to and evaluated pt at bedside in [facility]. Pt states that she had a URI 3 weeks ago. Upon examination there is some redness and irritation on soft palate involving uvula. Minimal to no swelling. No shortness of breath of hoarseness. AVSS, sinus tachycardia 110-115. Baseline HR 102 preop today. Pt is very anxious. Pt advised that she may have had some irritated oropharyngeal mucosa that was aggravated by LMA placement. Advised that her symptoms will improve in a few days. Pt instructed to call if symptoms do not improve or if they worsen. Pt agreed to take a valium.
[2017-10-13] MEDS ORDERED: ACETAMINOPHEN 650 MG/20.3 ML ORAL SOLUTION (CUPS) ONE (14:05)
[2017-10-13 15:43] VITALS: BP 112/72; PULSE 106; TEMP 98.4
--- NOTE | 2017-10-14 11:28 | PN ---
Progress Note (short form) - Note Progress Note: 22F POD1 s/p bilateral breast implant exchange and fat grafting under GA-LMA. Pt still c/o sore throat, and states that her palate is still red, and has an area of off white (?) plaque/ulceration. Pt denies fever, difficulty swallowing , SOB, active bleeding, or fever/cough. Instructed pt to see her PMD if symptoms persist/worsen over the next several days or if she develops fever.
--- NOTE | 2017-10-16 18:41 | OP ---
DATE OF OPERATION: 10/13/2017 SURGEON: Chato Rowley MD SPORTS ANCHOR SURGEON: JUAN MIGUEL Bearden PREOPERATIVE DIAGNOSES: 1. Bilateral acquired chest wall deformity, status post bilateral mastectomy. 2. Mechanical complication of breast implants. POSTOPERATIVE DIAGNOSES: 1. Bilateral acquired chest wall deformity, status post bilateral mastectomy. 2. Mechanical complication of breast implants. OPERATIVE PROCEDURE: 1. Right breast reconstruction utilizing other technique. 2. Left breast reconstruction utilizing other technique. 3. Right breast capsulotomy, removal and replacement of right breast implant. 4. Left breast capsulotomy, removal and replacement of breast implant. OPERATIVE INDICATION: The patient is a young woman who underwent breast reconstruction prior, now has mechanical complications with asymmetry in the chest wall, indicating the above procedures. The risks and benefits of surgical versus nonsurgical alternatives as well as material complications of the procedure were described to the patient on multiple occasions preoperatively. She agreed to the planned procedure. OPERATIVE PROCEDURE IN DETAIL: The patient was taken to the operating room, and after induction of general anesthesia in supine position, both arms were extended and padded, Venodyne boots were placed. Attention was turned to the mastectomy scars. After placement of sterile drapes, timeout, the mastectomy scars were injected with 1% local lidocaine anesthesia with 1:100,000 epinephrine. After allowing topical anesthesia and hemostasis, also injected was the abdominal area for harvest of reconstructed tissue. At this point, the right breast was attended to. An incision was made down through skin and subcutaneous tissue of the right breast through the mastectomy scar and down to underlying capsule. I then performed a capsulotomy and capsulectomy, removing the capsule in order to remove the implant. The tissue was sent for pathologic diagnosis, and the implant was removed and also sent for pathologic diagnosis. After copious irrigation of the pocket, the pocket was modified by performing capsulorrhaphy with coagulation. The lateral portion, superior, medial, and central portions of the capsule were reduced in size in order to accept the new implant into its anatomic position. The exact same procedure was carried out symmetrically on the opposite side, removing the implant with the same technique of capsulorrhaphy and shrinking the capsule in order to accept the implant itself. The devices were both sent for pathologic diagnosis as well as the capsule itself. An incision was made down through skin, subcutaneous tissue, and tissue harvested from the abdominal deep tissue. Dissection was carried down to the anterior rectus fascia and then over the external oblique and rectus fascia, harvesting tissue for reconstruction in the usual fashion. This tissue was transferred to the back table and prepared for reconstructive purposes. Attention was then turned back to the breast. An implant was chosen for the patient, which was a Natrelle Inspira soft touch breast implant, style SFF, 385 mL volume. The tissue was then transferred to the right breast in the superior, medial, central, and lateral portions of the right breast, and then also independently, blocks of tissue were removed and processed into the medial, superior, central, and lateral portions of the left breast. The implant was then placed onto the right breast, which showed good shape and contour to the reconstructed breast. The wound was then closed in layers using 3-0 PDS suture in a deep area over the capsule and deep tissue, which had been modified with the capsulectomy. This was then closed in another layer using 3-0 Biosyn suture on the deep dermis, and 4-0 in a subcuticular fashion. The exact same procedure was carried out symmetrically in the opposite left breast, also placing the Natrelle Inspira soft touch breast implant, style SFF, 385 mL. Good shape and contour and symmetry was seen in the sitting position. The wounds were dressed sterilely with Dermabond, Steri-Strips, and a compressive dressing over both breasts and abdomen. She tolerated the procedure well. She was awakened, extubated, and transferred to the recovery room in satisfactory condition. CHATO ROWLEY M.D. [id number]
--- NOTE | 2017-10-18 15:22 | PATH ---
Surgical Pathology Report Patient Name: VICKI VANEGAS [facility]. Rec. #: [id number] /Age/Gender: 1995 (Age: 22) / F Account: [id number] Location: [facility] Taken: 10/13/2017 Received: 10/13/2017 Reported: 10/18/2017 Physicians: Di Martin Specimen(s) Received A: BILATERAL BREAST IMPLANTS B: RIGHT BREAST CAPSULE C: LEFT BREAST CAPSULE Clinical History History of breast cancer Final Diagnosis A. BILATERAL BREAST IMPLANTS, REMOVAL: IMPLANTS, DESCRIBED (GROSS EXAMINATION ONLY). B. CAPSULE, RIGHT BREAST, EXCISION: SKIN SHOWING DERMAL FIBROSIS. SCANT PORTION OF DENSE FIBROUS TISSUE WITH FOREIGN BODY GIANT CELL REACTION, CONSISTENT WITH FIBROUS CAPSULE. C. CAPSULE, LEFT BREAST, EXCISION: FIBROUS CAPSULE. Electronically Signed April Daniels M.D. Gross Description A. Received fresh labeled "bilateral breast implants," are 2 clear, rubbery breast implants averaging 13 cm in diameter and 4.5 cm in depth. No soft tissue is present. No sections are submitted, gross only. B. Received in formalin labeled "right breast capsule," is a 0.8 x 0.3 x 0.2 cm portion of sanchez fibrous tissue. The specimen is submitted in toto in one cassette. C. Received in formalin labeled "left breast capsule," is a 5.5 x 1.0 x 0.3 cm sanchez, irregular portion of firm fibrous tissue, consistent with a fibrous capsule. Dementia Program Director sections are submitted in one cassette. 10/14/2017 saudi10/14/2017
== END 2017-10-13 15:45 | disposition home or self-care (01) ==
LOC: FASU 06:12
PROVIDERS: ATTEND Plastic Surgery
PROC: 0HNV0ZZ Release Bilateral Breast, Open Approach (ICD-10-PCS; 2017-10-13)
PROC: 0HRV0JZ Replacement of Bilateral Breast with Synthetic Substitute, Open Approach (ICD-10-PCS; 2017-10-13)
PROC: 0HPU0JZ Removal of Synthetic Substitute from Left Breast, Open Approach (ICD-10-PCS; 2017-10-13)
PROC: 0HPT0JZ Removal of Synthetic Substitute from Right Breast, Open Approach (ICD-10-PCS; 2017-10-13)
PROC: 0HRV0JZ Replacement of Bilateral Breast with Synthetic Substitute, Open Approach (ICD-10-PCS; 2017-10-13)
PROC: 0HRV07Z Replacement of Bilateral Breast with Autologous Tissue Substitute, Open Approach (ICD-10-PCS; principal; 2017-10-13 08:15)
DX: M95.4 Acquired deformity of chest and rib (principal); Z90.13 Acquired absence of bilateral breasts and nipples; T85.41XA Breakdown (mechanical) of breast prosthesis and implant, initial encounter; Y83.8 Other surgical procedures as the cause of abnormal reaction of the patient, or of later complication, without mention of misadventure at the time of the procedure; Y92.89 Other specified places as the place of occurrence of the external cause
CPT/HCPCS: 84703; 88300-TC; 88304-TC; 94760